=== PATIENT | female | born 1960 | race Caucasian/White ===

== ENCOUNTER 2017-05-15 17:17 | Inpatient (IN) | payer BC, OTHER ==
--- NOTE | ~2017-05-15 | CT4 ---
[facility] A Service of [facility] RADIOLOGY TEXT RESULTS PATIENT: LATANYA LINARES LOCATION: A - : 56 UNIT #: [id number] AGE: [address]: Nancy Farrell MD SEX: F ORDER DR: [id number] [facility] [address] [place], [place] [address] [id number] I MR#: [id number] Acc #: [id number] NAME: LATANYA LINARES. : 1960 SEX: F STUDY DATE/TIME: 05/15/2017 19:17 UNIT: C2A ROOM: 219 STUDY DESCRIPTION: CT Abd and Pelv Wo Cont Attending Physician: Melanie Carroll M.D. Ordering Physician: Manohar Werner Primary Care Physician: Lb Mixon Jr., M.D. MEDICAL IMAGING REPORT This report is preliminary unless electronic signature is present EXAM CT abdomen and pelvis without contrast HISTORY Left flank pain and hematuria today. This CT exam was performed with one or more of the following radiation dose reduction techniques: automatic exposure control, adjustment of mA and/or kV according to patient size, and iterative reconstruction. FINDINGS CT abdomen and pelvis was performed without contrast. CT ABDOMEN: Fatty infiltration of the liver. 1.9 cm gallstone. No biliary dilatation. No gallbladder distension. The spleen, pancreas, and adrenal glands are normal. A 1.5 cm nonobstructing stone in the lower pole of the right kidney. Moderate left hydronephrosis and mild dilatation of the proximal left ureter down to a 3 mm stone at the level of L4-L5, 7 cm beyond the ureteropelvic junction. Moderate left perinephric stranding. No bowel dilatation. No ascites. A 3 mm nonobstructing stone in the lower pole left kidney. CT PELVIS: Normal appendix. Xqlv-ge-timnimtn sigmoid diverticulosis and descending colonic diverticulosis. The uterus and adnexa are unremarkable. Urinary bladder is normal. IMPRESSION 1. A 3 mm obstructing stone in the mid left ureter at the level of L4-5 7 cm beyond the ureteropelvic junction causing moderate left STS. [facility] A Service of [facility] RADIOLOGY TEXT RESULTS PATIENT: LATANYA LINARES LOCATION: [facility] 219-01 : 56 UNIT #: [id number] AGE: [address]: Nancy Farrell MD SEX: F ORDER DR: hydronephrosis and mild left ureteral dilatation and moderate left perinephric stranding. 2. No acute findings in the remainder the abdomen or pelvis. 3. A 1.5 cm nonobstructing stone in the lower pole right kidney and 3 mm nonobstructing stone in the lower pole left kidney. Dictated by... Adeel Mujica M.D. THIS IS AN ELECTRONICALLY VERIFIED REPORT Adeel Mujica M.D. at 05/16/2017 2:36 PM KRYSTIN/jose TD: 05/16/2017 00:53 JOB #: [id number] MEDICAL IMAGING REPORT Page 1 of 1 COPY
--- NOTE | ~2017-05-15 | EKG ---
PATIENT: LATANYA LINARES UNIT #: [id number] Ventricular Rate: 95 BPM Atrial Rate: 95 BPM P-R Interval: 176 ms QRS Duration: 84 ms Q-T Interval: 362 ms QTC Calculation(Bezet): 454 ms P [place]: 77 degrees Calculated R [place]: 61 degrees Calculated T [place]: 44 degrees Diagnosis Line: Normal sinus rhythm Diagnosis Line: Low voltage QRS Diagnosis Line: Borderline ECG Diagnosis Line: Diagnosis Line: Confirmed by CASS VALDEZ MD ([id number]) on Diagnosis Line: 05/17/2017 2:52:36 PM INTERPRETING MD: RADHA
--- NOTE | ~2017-05-15 | HP ---
Unit #: [id number] #: [id number] Patient: LATANYA LINARES [id number] [address] [place], [place] [address] [id number] I MR#: [id number] NAME: LATANYA LINARES. ROOM: 46494 Age: 57 Sex: F Admission Date: 05/15/2017 : 1960 Attending Physician: Melanie Carroll M.D. Primary Care Physician: Lb Mixon Jr., M.D. HISTORY AND PHYSICAL CHIEF COMPLAINT A 3 mm obstructing left ureteral stone with intractable pain. HISTORY OF PRESENT ILLNESS This 57-year-old female with hypertension, mild AODM, COPD, and history of kidney stones, is admitted for renal colic. The patient states that she was well until today when she developed left flank pain radiating to her left lower abdomen and groin associated with sweats, chills, nausea, and vomiting. She presented to this emergency department tonight somewhat hypertensive but afebrile. She has impressive left CVA percussion tenderness on exam. CT scan shows a 3 mm obstructing stone in the left mid ureter with moderate left hydronephrosis and perinephric stranding. In the ER, she was treated with IV fluids, Zofran, Bentyl, and Rocephin. I have asked that a dose of Dilaudid be administered. Her urinalysis is only notable for 5-10 red cells and 1+ bacteria. PAST MEDICAL HISTORY 1. Very mild AODM on once a day metformin. 2. Kidney stones. 3. Hypertension. 4. Chronic obstructive pulmonary disease with tobacco abuse. 5. Obstructive sleep apnea. 6. 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 7. Panic attacks. 8. Peptic ulcer disease. 9. Degenerative joint disease. 10. Mild gastritis and large hiatal hernia on previous EGD. 11. Gallstones. 12. Tonsillectomy. 13. Umbilical hernia repair. ALLERGIES Intolerant to aspirin and codeine and morphine causes nausea. HOME MEDICATIONS 1. [place] 5 mg b.i.d. 2. Mobic 15 mg daily. 3. Bumex 1 mg b.i.d. 4. ProAir as needed. 5. Lopressor ER 50 mg daily. 6. Metformin 500 mg daily. 7. Prilosec 40 mg daily. Unit #: [id number] #: [id number] Patient: LATANYA LINARES 8. Singulair 10 mg daily. FAMILY HISTORY Coronary artery disease and kidney stones. SOCIAL HISTORY The patient lives alone. She smokes a few cigarettes daily and has been smoking since age 11. She no longer drinks alcohol. REVIEW OF SYSTEMS Notable for left flank and left ureteral pain. The patient did note some blood in her stool recently, sweats, chills, nausea, vomiting, kidney stones, EDWARD, hypertension, COPD, peptic ulcer disease, DJD, mild AODM, and above-mentioned surgeries. All other systems were reviewed and are otherwise negative. PHYSICAL EXAMINATION GENERAL: A pleasant, morbidly obese, 57-year-old female currently in no acute distress. VITAL SIGNS: Temperature 98, pulse 97, respirations 18, blood pressure 160/97, and O2 saturation is 99% on room air. HEENT: Eyes PERRLA. Extraocular muscles are intact. Pharynx is benign. NECK: Supple without adenopathy or thyromegaly. CHEST: Clear. BACK: Left percussion CVA tenderness. CARDIAC: Normal S1 and S2 without murmur. ABDOMEN: Bowel sounds are present. There is left mid and left lower quadrant tenderness without rebound or guarding. No hepatosplenomegaly or masses. EXTREMITIES: Without edema. Pedal pulses are present. No ulcers on the feet. NEUROLOGIC: Patient is awake, alert, and oriented. Cranial nerves are intact. Equal strength throughout. DIAGNOSTIC STUDIES ADMISSION LABORATORY: Hematocrit is 45, white blood count is 13.6, and normal platelet count. SMA-12: Glucose 141, chloride 98, alkaline phosphatase 113. Urinalysis with trace leukocyte esterase and trace protein with 5-10 red cells, 2-5 white cells, and 1+ bacteria. A few squamous cells seen. IMAGING: CT scan shows a 3 mm obstructing stone left ureter with moderate left hydronephrosis and perinephric stranding. ASSESSMENT 1. Renal colic with 3 mm obstructing left mid ureteral stone. Patient does have 1+ bacteria, so will go ahead and treat her for possible infected stone, although her examination otherwise in terms of infection is fairly benign. 2. Hypertension. 3. Adult-onset diabetes mellitus, on low-dose metformin. 4. Morbid obesity. 5. Peptic ulcer disease. 6. Chronic obstructive pulmonary disease. 7. Obstructive sleep apnea. PLANS 1. IV fluids and supportive treatment. Start Flomax. Unit #: [id number] #: [id number] Patient: LATANYA LINARES 2. Antibiotics for now. Ask Urology to see in the morning. 3. SCDs for DVT prophylaxis. 4. Routine EKG. 1. Dictated by Melanie Carroll M.D. AML/am TD: 05/15/2017 21:58 JOB #: [id number] HISTORY AND PHYSICAL Page 1 of 1 X Melanie Carroll MD X HISTORY AND PHYSICAL
--- NOTE | ~2017-05-15 | CO ---
Unit #: [id number] #: [id number] Patient: LATANYA LINARES [id number] [address] [place], [place] [address] [id number] I MR#: [id number] NAME: LATANYA LINARES. ROOM: 219 Age: 57 Sex: F Admission Date: 05/15/2017 : 1960 Attending Physician: Nancy Farrell M.D. Primary Care Physician: Lb Mixon Jr., M.D. Consultation Date: 05/16/2017 CONSULTATION REPORT CHIEF COMPLAINT Left flank pain. HISTORY OF PRESENT ILLNESS A 57-year-old woman with left flank pain started yesterday. The pain was severe, constant, sharp, very bothersome, seen in the emergency room, evaluated and found to have a 3 mm stone in mid left ureter and a large 1.5 cm stone in the right kidney without obstruction. We were consulted for this reason. PAST MEDICAL HISTORY Diabetes, hypertension, kidney stones, COPD, sleep apnea, hepatitis, panic attacks, DJD, gastritis, peptic ulcer disease, tonsillectomy, and umbilical hernia repair. MEDICATIONS [place], ProAir, Prilosec, Mobic, Lopressor, Bumex, and metformin. ALLERGIES Aspirin, codeine, morphine. SOCIAL HISTORY Positive smoking. REVIEW OF SYSTEMS Negative for 10 systems except for pain in the left flank. PHYSICAL EXAMINATION GENERAL: Afebrile, obese, in no acute distress, alert and oriented. PULMONARY: Benign. Trachea is midline. CARDIAC: Benign. ABDOMEN: Soft. No rebound. No guarding. She is mildly tender on the left. EXTREMITIES: No clubbing or cyanosis. NEUROLOGIC: Cranial nerves 2 through 12 intact. DIAGNOSTIC STUDIES LABORATORY RESULTS: Creatinine 1.4. White blood cell count of 13. Urinalysis; trace leukocytes, 1+ bacteria, no nitrites. ASSESSMENT Possible urinary tract infection, left ureteral stone, renal colic, hydronephrosis. The patient refuses cystoscopy stent placement with eventual treatment of her stone. Due to her possible urinary tract Unit #: [id number] #: [id number] Patient: LATANYA LINARES infection, she would benefit from stent placement versus ureteroscopy because she has possibly become septic. However, she can attempt to pass the stone. She as I mentioned refused to undergo procedure, she can attempt to pass the stone. Hope, she will be able to, if not she may need eventual stent placement and/or eventual treatment of her stone. Thank you for the referral. Dictated by... Lucio Porras M.D. JESSICA/waylon TD: 05/17/2017 02:06 JOB #: [id number] CONSULTATION REPORT Page 1 of 1 X Lucio Porras MD X CONSULTATION REPORT
--- NOTE | ~2017-05-15 | DS ---
Unit #: [id number] #: [id number] Patient: LATANYA LINARES [id number] [address] [address] [id number] I MR#: [id number] NAME: LATANYA LINARES. ROOM: 219 Age: 57 Sex: F Admission Date: 05/15/2017 : 1960 Discharge Date: 05/17/2017 Attending Physician: Nancy Farrell M.D. Primary Care Physician: Lb Mixon Jr., M.D. DISCHARGE SUMMARY CHIEF COMPLAINT Left flank pain. HISTORY This is a 57-year-old female who was admitted with the left lower abdominal and groin pain associated with some nausea, chills and vomiting. CT scan showed 3 mm obstructing stone in the left ureter with moderate left hydronephrosis and perinephric stranding. She was seen by urology. Seen by Dr. Briceno. She had a left ureteral stent placed. The patient is afebrile and hemodynamically table. She has no nausea or vomiting. At this point she is stable to be discharged home. DISCHARGE DIAGNOSIS 1. Left ureteral stone with left hydronephrosis. 2. Type 2 diabetes mellitus. 3. Peptic ulcer disease. 4. Hypertension. 5. COPD. 6. Morbid obesity. DISCHARGE MEDICATIONS 1. Metformin 500 mg b.i.d. to be started for q.8 hours. 2. Metoprolol 15 mg daily. 3. Bumex 1 mg p.o. b.i.d. 4. Singulair 10 mg daily. 5. Meloxicam 15 mg. Dictated by... Mahad Griffith/adam TD: 05/18/2017 12:52 JOB #: [id number] Unit #: [id number] #: [id number] Patient: LATANYA LINARES DISCHARGE SUMMARY Page 1 of 1 X Carlos Chapin MD DISCHARGE SUMMARY
--- NOTE | ~2017-05-15 | OR ---
Unit #: [id number] #: [id number] Patient: LATANYA LINARES [id number] [address] [address] [id number] I MR#: [id number] NAME: LATANYA LINARES. ROOM: 219 Date of Procedure: 05/16/2017 Admission Date: 05/15/2017 Surgeon: Lucio Porras M.D. : 1960 Attending Physician: Nancy Farrell M.D. Primary Care Physician: Lb Mixon Jr., M.D. OPERATIVE REPORT PREOPERATIVE DIAGNOSES Left ureteral stones and vomit. POSTOPERATIVE DIAGNOSES Left ureteral stones and vomit. PROCEDURES PERFORMED Cystoscopy, left stent placement. DESCRIPTION OF PROCEDURE After informed consent, she was taken to the cystoscopy suite, placed under general anesthetic, positioned in lithotomy. Her vagina and perineum were prepped and draped in the usual sterile fashion. Cystoscopy was performed showing normal bladder. Left and right ureteral orifices were normal. There were no tumors, no stones, no diverticula. A Sensor wire was placed under fluoroscopic guidance into the left collecting system. A 5 x 26 stent was placed over the wire with the tether removed. The stent was deployed. There was a good coil in the bladder and in the collecting system. She will be returned to the floor. She will undergo outpatient treatment of her mid-ureteral stone. She tolerated the procedure well. Dictated by... Mahad Saleem/waylon TD: 05/17/2017 04:25 JOB #: [id number] OPERATIVE REPORT Page 1 of 1 X Lucio Porras MD X PROCEDURE OPERATIVE NOTE
--- NOTE | ~2017-05-15 | BMI ---
[facility] Nutrition Therapy DATE: 05/16/17 Patient: MARTIN LINARES Physician: BIN Address: [address] Room/Bed: [address] [place] [address], Zip: [place] [address] Admit Date: 05/15/17 Date of : 56 Height: 5 8 Weight: 300 136.07 HIGH BMI NOTE: ANTHROPOMETRICS: HT: 68" WT: 136 KG BMI: 45.6 DIET: NPO RECOMMENDATIONS: 1. ONCE MEDICALLY FEASIBLE, ADVANCE TO A HEART HEALTHY DIET IN ORDER TO PROMOTE GRADUAL WEIGHT LOSS. Respectfully, CHHAYA KRAMER RD, LD [employer] [facility] cc: client file
[~2017-05-15 17:17] MED LIST: ACETAMINOPHEN PO; ADVANCED AM/PM1 EACH; AMOXICILLIN PO; BACTRIM DS TABL1 TA1 PO; BENTYL10 MG PO; LISINOPRIL-HCTZ1 T15 PO; NORCO 10-325 TA1 TAB PO; PHENERGAN PO; PHENERGAN25 M1 PO; PRILOSEC40 MG; PROMETHAZINE HC25 MG PO; PROTONIX PO; PYRIDIUM PO; VICODIN PO; WALGREEN'S PHARMACY
[2017-05-15 18:29] LABS: BASOPHIL# 0.1 X10e3 (0-0.3); BASOPHIL% 0.6 % (0-2.5); EOSINOPHIL# 0.2 X10e3 (0-0.7); EOSINOPHIL% 1.7 % (0.0-7.0); HEMOGLOBIN 14.3 gm/dL (12.0-16.0); LYMPHOCYTE# 2.5 X10e3 (1.0-3.5); LYMPHOCYTE% 18.3 % (17.0-45.0); MEAN CELL VOLUME 88.2 FL (83-96); MEAN CORPUSCULAR HEMOGLOBIN 28.1 PG (28-34); MEAN CORPUSCULAR HGB CONC 31.9 g/dL (30-36); MONOCYTE# 0.9 X10e3 (0-1.0); MONOCYTE% 6.3 % (3.0-12.0); NEUTROPHIL% 73.1 % (40-75); PLATELET COUNT 298 X10e3 (140-420); RED CELL DISTRIBUTION WIDTH 14.9 % (11.0-15.5); WHITE BLOOD COUNT 13.6 X10e3 (4.0-10.5)
[2017-05-15 18:31] LABS: DIFF IND NO
[2017-05-15 18:56] LABS: ALKALINE PHOSPHATASE 113 U/L (32-92); ALT (SGPT) 26 U/L (10-40); AMYLASE 25 U/L (0-46); AST (SGOT) 22 U/L (10-42); BILIRUBIN, DIRECT <0.1 mg/dL (0.0-0.2); BILIRUBIN,INDIRECT 0.4 mg/dL (0.0-0.9); BILIRUBIN,TOTAL 0.5 mg/dL (0.2-2.0); BLOOD UREA NITROGEN 20 mg/dL (9-23); BUN/CREATININE RATIO 15.38; CALCIUM SERUM 9.3 mg/dL (8.4-10.2); CARBON DIOXIDE 30 mmol/L (22-31); CHLORIDE 98 mmol/L (100-111); CREATININE SERUM 1.3 mg/dL (0.6-1.4); GLOM FILT RATE Estimated 44.9 mL/min (>60); GLUCOSE FASTING 141 mg/dL (70-110); LIPASE 31 U/L (22-51); POTASSIUM 4.1 mmol/L (3.5-5.1); PROTEIN TOTAL SERUM 7.9 g/dL (6.0-8.3); SODIUM 138 mmol/L (135-145)
[2017-05-15 19:26] LABS: URINE SOURCE CLEAN CATCH
[2017-05-15 19:34] LABS: URINE APPEARANCE CLEAR; URINE BILIRUBIN NEG (NEG); URINE BLOOD 1+ (NEG); URINE COLOR YELLOW; URINE GLUCOSE NEG (NEG); URINE KETONE NEG (NEG); URINE LEUKOCYTE ESTERASE TRACE (NEG); URINE NITRATE NEG (NEG); URINE PROTEIN TRACE (NEG); URINE SPECIFIC GRAVITY 1.019 (1.003-1.035); URINE UROBILINOGEN 0.2 MG/DL (NEG)
[2017-05-15 19:37] LABS: CULTURE INDICATED? YES; U HYALINE CASTS AUWI 0-2 /[LPF]; URINE BACTERIA AUWI 1+ (NEGATIVE); URINE SQUAMOUS EPITHELIAL CELL FEW /[HPF]
[2017-05-15] MEDS ORDERED: MONTELUKAST SOD10 MG PO (22:33)
[2017-05-15] MEDS ORDERED: OMEPRAZOLE40 M1 PO (22:34)
[2017-05-15] MEDS ORDERED: LORTAB 5-325 M1 EACH PO (22:35)
[2017-05-15] MEDS ORDERED: BUMETANIDE1 MG PO (22:36)
[2017-05-15] MEDS ORDERED: METOPROLOL SUCC50 MG PO (22:36)
[2017-05-15] MEDS ORDERED: METFORMIN HCL500 M1 PO (22:37)
[2017-05-15] MEDS ORDERED: MELOXICAM15 MG PO (22:37)
[2017-05-16 06:29] LABS: BASOPHIL# 0.1 X10e3 (0-0.3); BASOPHIL% 0.5 % (0-2.5); EOSINOPHIL# 0.1 X10e3 (0-0.7); EOSINOPHIL% 0.6 % (0.0-7.0); HEMATOCRIT 44.5 % (35.0-45.0); HEMOGLOBIN 13.9 gm/dL (12.0-16.0); LYMPHOCYTE# 1.9 X10e3 (1.0-3.5); LYMPHOCYTE% 14.6 % (17.0-45.0); MEAN CORPUSCULAR HEMOGLOBIN 28.1 PG (28-34); MEAN CORPUSCULAR HGB CONC 31.2 g/dL (30-36); MEAN PLATELET VOLUME 7.9 FL (6.5-11.5); MONOCYTE# 0.7 X10e3 (0-1.0); MONOCYTE% 5.5 % (3.0-12.0); NEUTROPHIL# 10.3 X10e3 (1.5-7.1); NEUTROPHIL% 78.8 % (40-75); PLATELET COUNT 273 X10e3 (140-420); RED BLOOD COUNT 4.94 X10e (3.90-5.30); RED CELL DISTRIBUTION WIDTH 15.1 % (11.0-15.5)
[2017-05-16 06:39] LABS: DIFF IND NO
[2017-05-16 06:51] LABS: BUN/CREATININE RATIO 12.85; CALCIUM SERUM 8.9 mg/dL (8.4-10.2); CREATININE SERUM 1.4 mg/dL (0.6-1.4); POTASSIUM 4.1 mmol/L (3.5-5.1)
[2017-05-17 07:47] LABS: HEMATOCRIT 39.4 % (35.0-45.0); HEMOGLOBIN 12.5 gm/dL (12.0-16.0); MEAN CELL VOLUME 90.8 FL (83-96); MEAN CORPUSCULAR HEMOGLOBIN 28.7 PG (28-34); MEAN CORPUSCULAR HGB CONC 31.6 g/dL (30-36); MEAN PLATELET VOLUME 7.3 FL (6.5-11.5); RED BLOOD COUNT 4.35 X10e (3.90-5.30); RED CELL DISTRIBUTION WIDTH 15.4 % (11.0-15.5); WHITE BLOOD COUNT 9.8 X10e3 (4.0-10.5)
[2017-05-17 08:16] LABS: BUN/CREATININE RATIO 15.38; CALCIUM SERUM 8.5 mg/dL (8.4-10.2); CREATININE SERUM 1.3 mg/dL (0.6-1.4); GLOM FILT RATE Estimated 44.9 mL/min (>60); POTASSIUM 4.1 mmol/L (3.5-5.1)
== END 2017-05-17 18:06 | disposition home or self-care (01) | DRG 694 ==
LOC: CED 17:17 → CEDOF 21:15 → C2A 21:15 → CEDOF 21:23 → CED 21:23 → C2A 23:43 → CEDOF 23:43 → C2A 05-16 06:24
PROVIDERS: Emergency Medicine; Family Medicine; Internal Medicine; Urology
PROC: 0T778DZ Dilation of Left Ureter with Intraluminal Device, Via Natural or Artificial Opening Endoscopic (ICD-10-PCS; principal; 2017-05-16 15:30)
DX: N13.2 Hydronephrosis with renal and ureteral calculous obstruction (principal); Z68.42 Body mass index [BMI] 45.0-49.9, adult; I10 Essential (primary) hypertension; G47.33 Obstructive sleep apnea (adult) (pediatric); F41.0 Panic disorder [episodic paroxysmal anxiety]; E66.01 Morbid (severe) obesity due to excess calories; F17.210 Nicotine dependence, cigarettes, uncomplicated; J44.9 Chronic obstructive pulmonary disease, unspecified; Z87.11 Personal history of peptic ulcer disease; Z79.84 Long term (current) use of oral hypoglycemic drugs; Z88.6 Allergy status to analgesic agent; Z88.5 Allergy status to narcotic agent; Z82.49 Family history of ischemic heart disease and other diseases of the circulatory system
CPT/HCPCS: 36415; 74176; 80048; 80076; 81003; 82150; 83690; 85025; 85027; 87086; 93005; 94760; 96361; 96372; 96374; 99285; C2617; J0500; J0696; J1170; J1885; J2270; J2405; J3010

== ENCOUNTER → 2017-05-30 | Day surgery (SDC) | payer OTHER ==
[~2017-05-30] MED LIST changes: +BUMETANIDE1 MG PO; +LORTAB 5-325 M1 EACH PO; +MELOXICAM15 MG PO; +METFORMIN HCL500 M1 PO; +METOPROLOL SUCC50 MG PO; +MONTELUKAST SOD10 MG PO; +OMEPRAZOLE40 M1 PO
--- NOTE | ~2017-05-30 | OR ---
Unit #: [id number] #: [id number] Patient: LATANYA LINARES [id number] [address] [address] [id number] O MR#: [id number] NAME: LATANYA LINARES. ROOM: Date of Procedure: 05/30/2017 Admission Date: 05/30/2017 Surgeon: Lucio Porras M.D. : 1960 Attending Physician: Lucio Porras M.D. Referring Physician: Lucio Porras M.D. Primary Care Physician: Lb Mixon Jr., M.D. OPERATIVE REPORT PREOPERATIVE DIAGNOSIS Left ureteral stone. POSTOPERATIVE DIAGNOSIS Left ureteral stone. PROCEDURES PERFORMED Left ureteroscopy, basket extraction, and stent replacement. ANESTHESIA General. DESCRIPTION OF PROCEDURE After informed consent, she was taken to the cystoscopy suite, placed under general anesthetic, and positioned in lithotomy. Her vagina and perineum were prepped and draped in the usual sterile fashion. Cystoscopy was performed showing a normal urethra and bladder. There were no tumors or stones visible. She had a stent exiting the left ureteral orifice. I pulled the stent out to the meatus and placed a wire into the stent and removed the stent. Both rigid and flexible ureteroscopy were performed. The stone had migrated into the collecting system. Using an access sheath and the flexible ureteroscope, the ureter was inspected and she had some stone fragments in the lower pole and mid pole. They were very small. Some of the fragments were big enough to extract and they were sent to the lab. Repeat inspection showed no other large stone fragments. The remaining ones were too small to basket. I did place a new stent, a 5 x 26 double-J without the tether attached. In 1 to 2 weeks, we will take her stent out as an outpatient. She tolerated the procedure well. Dictated by... Mahad SaleemB/modl TD: 05/30/2017 21:18 JOB #: [id number] Unit #: [id number] #: [id number] Patient: LATANYA LINARES OPERATIVE REPORT Page 1 of 1 X Lucio Porras MD OPERATIVE NOTE
[2017-05-30 16:07] LABS: HEMATOCRIT 43.3 % (35.0-45.0); HEMOGLOBIN 13.9 gm/dL (12.0-16.0); MEAN CELL VOLUME 88.9 FL (83-96); MEAN CORPUSCULAR HEMOGLOBIN 28.5 PG (28-34); MEAN CORPUSCULAR HGB CONC 32.1 g/dL (30-36); MEAN PLATELET VOLUME 7.2 FL (6.5-11.5); RED BLOOD COUNT 4.87 X10e (3.90-5.30); RED CELL DISTRIBUTION WIDTH 15.2 % (11.0-15.5); WHITE BLOOD COUNT 10.4 X10e3 (4.0-10.5)
[2017-05-30 16:19] LABS: BUN/CREATININE RATIO 19.16; CREATININE SERUM 1.2 mg/dL (0.6-1.4); GLOM FILT RATE Estimated 49.4 mL/min (>60); POTASSIUM 3.9 mmol/L (3.5-5.1)
== END | disposition home or self-care (01) ==
LOC: CSUR 15:20
PROVIDERS: Urology
DX: N20.1 Calculus of ureter (principal); K21.9 Gastro-esophageal reflux disease without esophagitis; F17.210 Nicotine dependence, cigarettes, uncomplicated; J43.9 Emphysema, unspecified; E11.9 Type 2 diabetes mellitus without complications; Z87.442 Personal history of urinary calculi; Z88.8 Allergy status to other drugs, medicaments and biological substances; Z88.6 Allergy status to analgesic agent; Z79.84 Long term (current) use of oral hypoglycemic drugs; Z79.891 Long term (current) use of opiate analgesic; Z79.899 Other long term (current) drug therapy; Z98.890 Other specified postprocedural states
CPT/HCPCS: 80048; 82365; 82947; 85027; 88300; C1758; C2617; J0690; J2405

== ENCOUNTER 2017-05-31 17:55 | Emergency (ER) | payer OTHER ==
[2017-05-31 19:28] LABS: URINE SOURCE CLEAN CATCH
[2017-05-31 19:48] LABS: URINE APPEARANCE CLOUDY; URINE BLOOD 3+ (NEG); URINE COLOR ORANGE; URINE GLUCOSE NEG (NEG); URINE KETONE NEG (NEG); URINE LEUKOCYTE ESTERASE 3+ (NEG); URINE NITRATE POS (NEG); URINE PROTEIN 3+ (NEG); URINE SPECIFIC GRAVITY 1.023 (1.003-1.035)
[2017-05-31 19:51] LABS: CULTURE INDICATED? YES; URINE BACTERIA AUWI NEG (NEGATIVE); URINE SQUAMOUS EPITHELIAL CELL OCC /[HPF]; UWBCS1 AUWI 100-200 (0-5)
[2017-05-31 19:57] LABS: URINE BILIRUBIN NEG (NEG)
[2017-05-31 20:11] LABS: U HYALINE CASTS AUWI 0-2 /[LPF]
== END 2017-05-31 20:30 | disposition home or self-care (01) ==
LOC: CED 17:55
PROVIDERS: Emergency Medicine
DX: T88.6XXA Anaphylactic reaction due to adverse effect of correct drug or medicament properly administered, initial encounter (principal); T37.0X5A Adverse effect of sulfonamides, initial encounter; N39.0 Urinary tract infection, site not specified; E11.9 Type 2 diabetes mellitus without complications; Z88.2 Allergy status to sulfonamides; Z88.8 Allergy status to other drugs, medicaments and biological substances
CPT/HCPCS: 81003; 87086; 96372; 99285; J0171